=== PATIENT | female | born 1985 | race Caucasian/White ===

== ENCOUNTER 2016-04-07 15:06 | Emergency (ER) | payer OTHER ==
[~2016-04-07] VITALS: Ht 167.6 cm; Wt 135.2 kg
--- NOTE | 2016-04-07 17:02 | ED UPPER/LOWER EXTREMITY COMPL ---
History of Present Illness General Chief Complaint: Dyspnea (COPD, CHF, Other) Stated Complaint: BURNING IN RT LEG YESTERDAY NOW ?SOB O2 99 Source: patient Exam Limitations: no limitations Vital Signs & Intake/Output Vital Signs & Intake/Output Vital Signs Date Time Temp Pulse Resp B/P Pulse O2 O2 Flow FiO2 Ox Delivery Rate 04/07 1517 98.3 95 20 157/97 100 Room Air Allergies Coded Allergies: No Known Allergies (04/07/16) Triage Note: TRIAGE: PT TO ER C/C RT UPPER LEG PAIN X COUPLE MONTHS. SAW PMD COUPLE MONTHS AGO AND "THEY DIDN'T REALLY DO ANYTHING". WAS ADVISED TO USE COMPRESSION STOCKINGS AND TO LOSE WEIGHT. STATES PAIN FEELS BURNING IN NATURE OR "LIKE HOT WATER RUNNING DOWN IT". Triage Nurses Notes Reviewed? yes : No Patient currently breastfeeds: No HPI: Patient presents for evaluation of a swelling and warmth sensation of the right leg that began gradually about 2 weeks ago. She states it was also some redness. The symptoms seem better now but have tracked up into the area of the proximal right thigh. She states that she feels a "warm running water sensation in the right thigh. In addition she states she's had intermittent episodes of dyspnea over the past 2 weeks although denies dyspnea currently. There has been no fever or cold symptoms or productive cough. Past History Travel History Traveled to [place] past 21 day No Medical History Any Pertinent Medical History? see below for history Neurological: NONE EENT: NONE Cardiovascular: NONE Respiratory: NONE Gastrointestinal: NONE Hepatic: NONE Renal: NONE Musculoskeletal: NONE Psychiatric: NONE Endocrine: NONE Blood Disorders: NONE Cancer(s): NONE MANUFACTURING PROCESS ENGINEER/Reproductive: NONE Surgical History Surgical History: non-contributory Psychosocial History What is your primary language Bulgarian Tobacco Use: Never used ETOH Use: denies use Illicit Drug Use: denies illicit drug use Family History Hx Contributory? No Review of Systems Review of Systems Constitutional: Reports: no symptoms. EENTM: Reports: no symptoms. Respiratory: Reports: see HPI. Cardiovascular: Reports: no symptoms. Gastrointestinal/Abdominal: Reports: no symptoms. Genitourinary: Reports: no symptoms. Musculoskeletal: Reports: see HPI. Skin: Reports: no symptoms. Neurological/Psychological: Reports: no symptoms. Hematologic/Endocrine: Reports: no symptoms. Immunological: Reports: no symptoms. All Other Systems: Reviewed and Negative Physical Exam Physical Exam General Appearance: see below Comments: Gen.: Well-nourished, well-developed, no acute respiratory distress. Head: Normocephalic, atraumatic. Eyes: Normal inspection bilaterally Ears: Normal inspection bilaterally Nose: Normal inspection Throat/mouth : Moist mucosa Neck: Supple, full range of motion, no goiter Heart: Regular rate and rhythm, no murmurs rubs or gallops Lungs: Clear to auscultation bilaterally with normal air entry Chest: Nontender Back: Normal range of motion Abdomen: Soft, nontender, nondistended, normal bowel sounds Extremities: Normal range of motion grossly, equal radial pulses, no cyanosis, Neurologic: Cranial nerves grossly intact, speech is clear Skin: warm and dry Psychiatric: Calm, cooperative, no apparent delusions or hallucinations Progress Differential Diagnosis: dvt Plan of Care: Orders Procedure Date/time Status Add-on Test (ER Only) 04/07 1701 Active US-UNILATERAL VENOUS DOPPLER 04/07 162 Active HUMAN BETA HCG SCREEN 04/07 1624 Complete D-DIMER 04/07 1624 Complete EKG 04/07 1624 Active Laboratory Tests 04/07/16 1635: D-Dimer < 200 04/07/16 1624: Total Beta HCG NEGATIVE Diagnostic Imaging: Discussed w/RAD: Radiology Read. CXR Impression: PATIENT: JULY FOSTER PRESENT AGE: 25 PATIENT ACCOUNT NO: [id number] : [birth year] LOCATION: [facility] ORDERING PHYSICIAN: ELSY MUKHERJEE MD SERVICE DATE: 04/07/16 EXAM TYPE: CAT - CT ABD & PELVIS W ORAL & IV CO EXAMINATION: CT ABDOMEN AND PELVIS WITH CONTRAST CLINICAL INFORMATION: Right-sided abdominal pain. COMPARISON: CT abdomen and pelvis from 08/14/2014 and 04/06/2016. TECHNIQUE: Multidetector volumetric imaging was performed of the abdomen and pelvis before and after the IV administration of 95 mL of Optiray 320 intravenous contrast. Sagittal and coronal reformatted images were obtained on the technologist's workstation. DLP: 423 mGy-cm. FINDINGS: LUNG BASES: 0.3 cm noncalcified nodule within the left lower lobe is unchanged compared to 08/14/2014, consistent with a benign nodule. LIVER, GALLBLADDER, AND BILIARY TREE: Normal. PANCREAS: Normal. SPLEEN: Normal. ADRENAL GLANDS: Normal. KIDNEYS AND URETERS: The kidneys are normal in size, shape, and attenuation. No hydronephrosis, hydroureter, or calculi. No perinephric stranding. BLADDER: Unremarkable. GASTROINTESTINAL TRACT: Loops of bowel remain normal in caliber. The terminal ileum is normal. No evidence of acute inflammation or obstruction along the gastrointestinal tract. The appendix remains normal in size and measures 0.5 cm diameter. There is no evidence of appendiceal wall thickening or periappendiceal fat stranding. No ascites or pneumoperitoneum. ABDOMINAL WALL: Unremarkable. LYMPH NODES: No pathologic sized lymph nodes within the abdomen or pelvis. VASCULAR: Abdominal aorta is normal in caliber and the celiac trunk, SMA , SADE and renal arteries are widely patent. PELVIC VISCERA: The uterus and ovaries are normal in appearance. There are no pathologic fluid collections within the pelvis. Multiple phleboliths are present within the lower pelvis. OSSEOUS STRUCTURES: No acute osseous abnormalities. IMPRESSION: No evidence of appendicitis. No acute imaging findings within the abdomen or pelvis compared to 04/06/2016. DICTATED BY: ORLIN EMANUEL MD DATE/TIME DICTATED:04/07/161632 SCOURING TRAIN OPERATOR:AMELIA DATE/TIME TRANSCRIBED:04/07/161632 CONFIDENTIAL, DO NOT COPY WITHOUT APPROPRIATE AUTHORIZATION. <Electronically signed in Other Vendor System> SIGNED BY: ORLIN EMANUEL MD 04/07/16 0207 Departure Departure Disposition: HOME OR SELF CARE Condition: Stable Clinical Impression Primary Impression: Right leg swelling Referrals: ANNE MARIE CATES MD (PCP/Family) Additional Instructions: Contact the radiology department tomorrow for an appointment for the ultrasound of your right lower extremity to rule out a DVT. Notify your primary care doctor of this emergency department visit and treatment plan. Return if any concerns or sudden worsening. Departure Forms: Customer Survey General Discharge Information
--- NOTE | 2016-04-07 17:24 | RADIOLOGY REPORT ---
EXAMINATION: XR CHEST CLINICAL INFORMATION: Dyspnea COMPARISON: None. TECHNIQUE: PA and lateral views of the chest were obtained. FINDINGS: The cardiomediastinal silhouette and pulmonary vascularity are normal. The lungs are clear without focal pulmonary infiltrate. The costophrenic angles are sharp and clear. No pleural effusions or pneumothorax. Degenerative changes of mid to lower thoracic spine seen. IMPRESSION: No acute cardiopulmonary findings.
[2016-04-07 18:14] VITALS: BP 140/95
== END 2016-04-07 18:26 ==
LOC: ERH 15:06
DX: M79.89 Other specified soft tissue disorders (principal)
CPT/HCPCS: 93005; 93010

== ENCOUNTER 2016-09-19 09:11 | Emergency (ER) | payer OTHER ==
[~2016-09-19] VITALS: Ht 167.6 cm; Wt 136.1 kg
[2016-09-19] MEDS ORDERED: DEXTROAMP-AMPHE10 MG PO (09:23)
[2016-09-19] MEDS ORDERED: ADDERALL XR 3030 MG PO (09:24)
--- NOTE | 2016-09-19 09:26 | ED ANIMAL BITE/WOUND CHECK ---
History of Present Illness General Chief Complaint: Animal/Insect Bite Stated Complaint: SCRATCHED BY AN OPOSSUM Source: patient, old records Exam Limitations: no limitations Vital Signs & Intake/Output Vital Signs & Intake/Output Vital Signs Date Time Temp Pulse Resp B/P B/P Pulse O2 O2 Flow FiO2 Mean Ox Delivery Rate 09/19 0952 98.3 89 15 124/74 100 Room Air 09/19 0915 98.1 74 18 138/88 98 Room Air Allergies Coded Allergies: No Known Allergies (04/07/16) Reconcile Medications Dextroamphetamine/Amphetamine (Dextroamp-Amphetamin 10 MG Tab) 10 MG TABLET 1 TAB PO DAILY PRN ADHD (Reported) Dextroamphetamine/Amphetamine (Adderall XR 30 MG Capsule) 30 MG CAP.ER.24H 1 CAP PO DAILY ADHD (Reported) Triage Note: PT STATES THAT SHE WAS SCRATCHED BY AN OPOSSUM LAST PM, WAS PICKING UP HER LAUNDRY BASKET AND IT GOT STARTLED AND SCRATCHED HER ON L HAND Triage Nurses Notes Reviewed? yes Onset: Abrupt Duration: day(s): (1), better Timing: recent history Injury Environment: home Severity of Attack: bitten, scratched Severity: mild Severity Numbers: 1 No Modifying Factors: none Associated Symptoms: DENIES : No Patient currently breastfeeds: No HPI: 30-year-old female presents to ER for evaluation after sustaining injury to her left hand last night around 1 AM. She states she is taking a closed basket in from off the deck when a possum was next to it became startled and either scratched or bit her hand. She is not sure which. She states that it hurt yesterday however states that today there's been no pain no discharge no redness fever or chills she denies any complaints or modifying factors otherwise. The patient had to undergo a rabies series in the past for a rabid bat her last dose was approximately 8 years ago (CAROLA MARES) Past History Travel History Traveled to [place] past 21 day No Medical History Any Pertinent Medical History? none Neurological: NONE EENT: NONE Cardiovascular: NONE Respiratory: NONE Gastrointestinal: NONE Hepatic: NONE Renal: NONE Musculoskeletal: NONE Psychiatric: NONE Endocrine: NONE Blood Disorders: NONE Cancer(s): NONE MACHINING DEPARTMENT SUPERVISOR/Reproductive: NONE Surgical History Surgical History: non-contributory Psychosocial History What is your primary language North Korean Tobacco Use: Never used ETOH Use: denies use Illicit Drug Use: denies illicit drug use Family History Hx Contributory? No (CAROLA MARES) Review of Systems Review of Systems Constitutional: Reports: see HPI. All Other Systems: Reviewed and Negative Comments Review of systems: See HPI, All other systems negative. Constitutional, no chills no fever, no malaise no weight loss HEENT: No visual changes no sore throat no congestion, no ear pain Cardiovascular: No chest pain , no palpitation , no orthopnea Skin: no rashes, no change in skin Respiratory: No dyspnea no cough no sputum no hemoptysis GI: No nausea no vomiting, no diarrhea, no bloating/constipation : No dysuria No hematuria, no frequency, no discharge Muscle skeletal: No joint pain, no joint swelling, no back pain, no neck pain, Neurologic: No numbness no confusion, no headache Psych: No stress no depression,. Heme/endocrine: No bruising no bleeding Immunology: No lymphadenopathy (CAROLA MARES) Physical Exam Physical Exam General Appearance: well developed/nourished, no apparent distress, alert Comments: Well-developed well-nourished patient in no apparent distress. HEENT: Atraumatic, extraocular motion intact Neck: Supple, FROM Back: FROM Cardiovascular: Regular rate and rhythms no murmurs rubs or gallops, Respiratory: No respiratory distress. Patient speaking in full complete sentences. Breath sounds clear to auscultation bilaterally: NO W/R/R Extremities: full range of motion Neuro: awake, alert, and oriented to person, place and time. There were no obvious focal neurologic abnormalities. Skin: Superficial abrasion noted to the dorsal left hand there is no surrounding erythema and induration fluctuance nontender with discharge elicited Warm & dry; No appreciable rash on exposed skin Psych: Mood affect normal, normal memory normal judgment. (CAROLA MARES) Progress Differential Diagnosis: abscess, cellulitis Plan of Care: Current Medications Sig/Corky Start time Last Medication Dose Stop Time Status Admin Rabies Vaccine 1 SYR ONCE ONE 09/19 944 AC (Rabies (Vaccine) 09/19 945 Inj (1ML)) Tetanus/Diphtheria 0.5 ML ONCE ONE 09/19 944 AC Toxoids Adsorbed 09/19 945 (Decavac) The patient has gone through a rabies vaccine IVIG in the past series due to a rabid bat given her prior postexposure prophylaxis, patient will be treated with vaccine and tetanus will return on day 3 for her final rabies vaccination. I answered all questions she feels comfortable plan, I had an extensive conversation regarding need for close follow up with their primary care physician this week as well as return precautions. I answered all of their questions, they feel comfortable with the plan and follow-up care. (CAROLA MARES) Departure Departure Time of Disposition: 934 Disposition: HOME OR SELF CARE Condition: Stable Clinical Impression Primary Impression: Need for prophylactic vaccination against rabies Secondary Impressions: Animal scratch Referrals: ANNE MARIE CATES MD (PCP/Family) Additional Instructions: Follow-up as discussed in 3 days for your final rabies vaccination. Keep Neosporin bacitracin on wound observe for signs of infection: Redness warmth swelling discharge fever chills return at anytime sooner if any concerns. Departure Forms: Customer Survey General Discharge Information (CAROLA MARES) PA/CNA Co-Sign Statement Statement: ED Attending supervision documentation- I saw and evaluated the patient. I have also reviewed all the pertinent lab results and diagnostic results. I agree with the findings and the plan of care as documented in the PA's/CNA's documentation. x I have reviewed the ED Record and agree with the PA's/CNA's documentation. [] Additions or exceptions (if any) to the PAs/CNA's note and plan are summarized below: [] (TERRY BRIDGES,RAGINI)
[2016-09-19 09:52] VITALS: BP 124/74
== END 2016-09-19 09:53 ==
LOC: ERH 09:11
DX: S60.512A Abrasion of left hand, initial encounter (principal); Z20.3 Contact with and (suspected) exposure to rabies; W64.XXXA Exposure to other animate mechanical forces, initial encounter; Y92.9 Unspecified place or not applicable; Y93.9 Activity, unspecified
CPT/HCPCS: 90471; 90714

== ENCOUNTER 2016-09-22 15:54 | Emergency (ER) | payer OTHER ==
[~2016-09-22 15:54] MED LIST: ADDERALL XR 3030 MG PO; DEXTROAMP-AMPHE10 MG PO
[2016-09-22 16:03] VITALS: BP 139/94
--- NOTE | 2016-09-22 16:05 | ED GENERAL ADULT ---
History of Present Illness General Chief Complaint: General Adult Stated Complaint: RABIES VAC Source: patient Exam Limitations: no limitations Vital Signs & Intake/Output Vital Signs & Intake/Output Vital Signs Date Time Temp Pulse Resp B/P B/P Pulse O2 O2 Flow FiO2 Mean Ox Delivery Rate 09/22 1603 98.6 96 15 139/94 98 Room Air Room Air Allergies Coded Allergies: No Known Allergies (09/22/16) Reconcile Medications Dextroamphetamine/Amphetamine (Dextroamp-Amphetamin 10 MG Tab) 10 MG TABLET 1 TAB PO DAILY PRN ADHD (Reported) Dextroamphetamine/Amphetamine (Adderall XR 30 MG Capsule) 30 MG CAP.ER.24H 1 CAP PO DAILY ADHD (Reported) Triage Note: PT TO ED FOR SECOND RABIES SHOT. OFFERS NO COMPLAINTS. Triage Nurses Notes Reviewed? yes : No Patient currently breastfeeds: No HPI: Patient presents for her second and last rabies shot. Patient has had the full rabies vaccine in the past. Patient was scratched by a possum. Patient has no complaints from her for shot. Patient denies any fevers or chills. There is no pain. Past History Travel History Traveled to [place] past 21 day No Medical History Any Pertinent Medical History? none Neurological: NONE EENT: NONE Cardiovascular: NONE Respiratory: NONE Gastrointestinal: NONE Hepatic: NONE Renal: NONE Musculoskeletal: NONE Psychiatric: NONE Endocrine: NONE Blood Disorders: NONE Cancer(s): NONE HISTOPATHOLOGY TECHNICIAN/Reproductive: NONE Tetanus Vaccine: 09/19/16 Surgical History Surgical History: non-contributory Psychosocial History What is your primary language Yoruba Tobacco Use: Never used ETOH Use: denies use Illicit Drug Use: denies illicit drug use Family History Hx Contributory? No Review of Systems Review of Systems Constitutional: Reports: no symptoms. Respiratory: Reports: no symptoms. Cardiovascular: Reports: no symptoms. GI: Reports: no symptoms. Musculoskeletal: Reports: no symptoms. Neurological/Psychological: Reports: no symptoms. Immunologic/Allergic: Reports: no symptoms. Physical Exam Physical Exam General Appearance: well developed/nourished, alert, awake Eyes: Bilateral: PERRL, EOMI. Respiratory: normal breath sounds, chest non-tender, no respiratory distress, lungs clear Cardiovascular: regular rate/rhythm, normal peripheral pulses Back: normal inspection, normal range of motion Neurologic/Psych: no motor/sensory deficits, awake, alert, oriented x 3, normal gait, normal mood/affect Skin: intact, normal color, warm/dry Core Measures ACS in differential dx? No CVA/TIA Diagnosis: No Severe Sepsis Present: No Septic Shock Present: No Progress Differential Diagnoses I considered the following diagnoses in my evaluation of the patient: [Rabies vaccine] Plan of Care: Current Medications Sig/Corky Start time Last Medication Dose Stop Time Status Admin Rabies Vaccine 1 SYR ONCE ONE 09/22 1600 UNVr (Rabies (Vaccine) 09/22 1601 Inj (1ML)) Initial ED EKG: none Departure Departure Disposition: HOME OR SELF CARE Condition: Stable Clinical Impression Primary Impression: Rabies exposure Referrals: ANNE MARIE CATES MD (PCP/Family) Additional Instructions: RETURN FOR ANY CONCERNS Departure Forms: Customer Survey General Discharge Information Critical Care Note Critical Care Note Critical Care Time: non-applicable
== END 2016-09-22 16:20 ==
LOC: ERH 15:54
DX: Z20.3 Contact with and (suspected) exposure to rabies (principal)
CPT/HCPCS: 90471; 99281